=== PATIENT | male | born 1990 | race Caucasian/White ===

== ENCOUNTER 2016-12-24 18:04 | Observation (INO) | payer SELFPAY ==
--- NOTE | 2016-12-24 18:33 | DR.ABDMALE ---
HPI - Time seen Time seen: 18:33 - PCP Primary Care Physician: HAM - Complaint Chief Complaint Doctors Comments: Patient admits to stomach pain and diarrhea nausera for 3-4 days. He denies fever. Chief Complaint:: PT. C/O ABDOMINAL PAIN, NAUSEA, DIARRHEA, BELCHING. - Mode of arrival Mode of Arrival: Ambulatory - Timing Onset of Chief Complaint: 12/22/16 PMH - PMH Past Medical History: Yes Past Medical History: Hypertension Past Surgical History: Yes Surgical History: Other - Family History History of Family Medical Conditions: No - Social History Does patient currently use any type of tobacco product: No Have you used tobacco products in the last 12 months: No Type of Tobacco Use: None Does any household member use tobacco: No Alcohol Use: None Do you use any recreational Drugs:: No Lives With: Spouse Lives Where: Home - infectious screening In the last 2 months have you had wt loss of >10#?: NO Have you had fever, night sweats or hemotysis?: No Have you traveled outside the country in the last 6 months?: No Isolation: Standard ROS - Review of Systems Eyes: No Symptoms Reported ENTM: No Symptoms Reported Respiratoy: No Symptoms Reported Cardiovascular: No Symptoms Reported Gastrointestinal/Abdominal: Abdominal Pain, Diarrhea, Nausea Genitourinary: No Symptoms Reported Neurological: No Symptoms Reported Musculoskeletal: No Symptoms Reported Integumentary: No Symptoms Reported Hematologic/Lymphatic: No Symptoms Reported Endocrine: No Symptoms Reported Psychiatric: No Symptoms Reported All Other Systems: Reviewed and Negative PE - Vital Signs Vital Signs: Temp Pulse Pulse Resp BP BP Pulse Ox 12/24/16 20:56 98.9 F 91 H 16 139/91 98 12/24/16 18:05 98.4 F 130 H 18 156/101 97 - General Limitations: No Limitations General Appearance: Alert, In No Apparent Distress - Head Head Exam: Normal Inspection, Atraumatic - Eyes Eye exam: Normal Appearance, PERRL, EOMI - ENT ENT Exam: Normal Exam - Neck Neck Exam: Normal Inspection, Full ROM - Chest Chest Inspection: Normal Inspection - Respiratory Respiratory Exam: Normal Lung Sounds Bilat Respiratory Exam: Bilateral Clear to Auscultation - Cardiovascular Cardiovascular Exam: Regular Rate, Normal Rhythm - Abdominal Exam Abdominal Exam: Normal Inspection, Tenderness, Guarding Abdominal Tenderness: RUQ, LUQ, Suprapubic - Rectal Rectal Exam: Deferred - Back Back Exam: Normal Inspection - Extremeties Extremities Exam: Normal Inspection - Exam: Male: Deferred - Neurologic Neurological Exam: Alert, Oriented X3, CN II-XII Intact - Psychiatric Psychiatric Exam: Normal Affect, Normal Mood - Skin Skin Exam: Warm, Dry, Intact Course - Reevaluation 1st: Unchanged - Consultation Consultation Comments: Dr Ramesh called wanted patient to have CT abd/with contrast and admitted to obs. 1842 ROR - Labs Reviewed Result Diagrams: 12/24/16 18:50 12/24/16 18:50 Laboratory: 12/24/16 19:12 Stool - Final WBC 19.7 X10^3/uL (3.6-10.0) H 12/24/16 18:50 RBC 5.57 X10^6/uL (4.7-6.0) 12/24/16 18:50 Hgb 16.9 g/dL (13.5-18.0) 12/24/16 18:50 Hct 48.0 % (42.0-54.0) 12/24/16 18:50 MCV 86.1 fL (80.0-100.0) 12/24/16 18:50 MCH 30.3 pg (27.0-34.0) 12/24/16 18:50 MCHC 35.2 g/dL (33.0-35.0) H 12/24/16 18:50 RDW 13.3 % (11.6-16.5) 12/24/16 18:50 Plt Count 272 X10^3/uL (150.0-450.0) 12/24/16 18:50 MPV 9.8 fL (7.4-11.0) 12/24/16 18:50 Neut % 84.4 % (42.0-75.0) H 12/24/16 18:50 Lymph % 9.3 % (21.0-51.0) L 12/24/16 18:50 Jessamine % 5.8 % (0.0-13.0) 12/24/16 18:50 Eos % 0.4 % (0.9-2.9) L 12/24/16 18:50 Baso % 0.1 % (0.2-1.0) L 12/24/16 18:50 Neut # 16.6 x10^3/uL (2.2-4.8) H 12/24/16 18:50 Lymph # 1.8 X10^3/uL (1.3-2.9) 12/24/16 18:50 Jessamine # 1.1 x10^3/uL (0.3-0.8) H 12/24/16 18:50 Eos # 0.1 x10^3/uL (0.0-0.2) 12/24/16 18:50 Baso # 0.0 X10^3/uL (0.0-0.1) 12/24/16 18:50 Absolute Nucleated RBC 0.0 /100WBC 12/24/16 18:50 Sodium 140 mmol/L (136-145) 12/24/16 18:50 Corrected Sodium 140 mmol/L (136-145) 12/24/16 18:50 Potassium 4.1 mmol/L (3.5-5.1) 12/24/16 18:50 Chloride 104 mmol/L (98-107) 12/24/16 18:50 Carbon Dioxide 24.1 mmol/L (21-32) 12/24/16 18:50 BUN 11 mg/dL (7-18) 12/24/16 18:50 Creatinine 1.32 mg/dL (0.70-1.30) H 12/24/16 18:50 Est GFR (MDRD) Af Amer > 60 (>60) 12/24/16 18:50 Est GFR (MDRD) Non-Af > 60 (>60) 12/24/16 18:50 Glucose 111 mg/dL (65-99) H 12/24/16 18:50 Calcium 9.2 mg/dL (8.5-10.1) 12/24/16 18:50 Corrected Calcium TNP 12/24/16 18:50 Total Bilirubin 0.60 mg/dL (0.2-1.0) 12/24/16 18:50 AST 26 Units/L (15-37) 12/24/16 18:50 ALT 69 Units/L (12-78) 12/24/16 18:50 Alkaline Phosphatase 85 Units/L (46-116) 12/24/16 18:50 C-Reactive Protein 20.50 mg/L (0-3.0) H 12/24/16 18:50 Total Protein 8.0 g/dL (6.4-8.2) 12/24/16 18:50 Albumin 4.0 g/dL (3.4-5.0) 12/24/16 18:50 Globulin 4.0 g/dL (2.5-4.5) 12/24/16 18:50 Albumin/Globulin Ratio 1.0 Ratio (1.1-2.1) L 12/24/16 18:50 Amylase 47 Units/L (25-115) 12/24/16 18:50 Lipase 77 Units/L (73-393) 12/24/16 18:50 Stool Description 5 g liquid 12/24/16 19:12 Stool for White Cells No wbc's seen (None) 12/24/16 19:12 Cryptosporid parvum Ag Negative (NEGATIVE) 12/24/16 19:12 E. histolytica Antigen Negative (NEGATIVE) 12/24/16 19:12 Giardia lamblia Ag Negative (NEGATIVE) 12/24/16 19:12 H. pylori IgG Antibody Negative (NEGATIVE) 12/24/16 18:50 - Diagnosis Discharge Problem: Acute diarrhea Abdominal pain Qualifiers: Abdominal location: right lower quadrant Qualified Code(s): R10.31 - Right lower quadrant pain Gastritis Qualifiers: Gastritis type: unspecified gastritis Chronicity: acute Gastritis bleeding: without bleeding Qualified Code(s): K29.00 - Acute gastritis without bleeding - Discharge Plan Condition: Stable - Follow ups/Referrals Follow ups/Referrals: Michele Ramesh [Primary Care Provider] - 3 days - Instructions
[2016-12-24] MEDS ORDERED: NS 1000 ML 1,000 ML IV ONE (18:40)
[2016-12-24] MEDS ORDERED: NS 1000 ML 1,000 ML ONE (18:59)
[2016-12-24 19:14] LABS: BASOPHILS % (AUTO) 0.1 % (0.2-1.0); EOSINOPHILS # (AUTO) 0.1 x10^3/uL (0.0-0.2); EOSINOPHILS % (AUTO) 0.4 % (0.9-2.9); HEMOGLOBIN 16.9 g/dL (13.5-18.0); LYMPHOCYTES # (AUTO) 1.8 X10^3/uL (1.3-2.9); LYMPHOCYTES % (AUTO) 9.3 % (21.0-51.0); MEAN CORPUSCULAR HEMOGLOBIN 30.3 pg (27.0-34.0); MEAN CORPUSCULAR HGB CONC 35.2 g/dL (33.0-35.0); MEAN CORPUSCULAR VOLUME 86.1 fL (80.0-100.0); MEAN PLATELET VOLUME 9.8 fL (7.4-11.0); MONOCYTES # (AUTO) 1.1 x10^3/uL (0.3-0.8); MONOCYTES % (AUTO) 5.8 % (0.0-13.0); NEUTROPHILS # (AUTO) 16.6 x10^3/uL (2.2-4.8); NEUTROPHILS % (AUTO) 84.4 % (42.0-75.0); PLATELET COUNT 272 X10^3/uL (150.0-450.0); RED BLOOD COUNT 5.57 X10^6/uL (4.7-6.0); RED CELL DISTRIBUTION WIDTH 13.3 % (11.6-16.5); WHITE BLOOD COUNT 19.7 X10^3/uL (3.6-10.0)
[2016-12-24 19:16] LABS: ALANINE AMINOTRANSFERASE 69 Units/L (12-78); ALKALINE PHOSPHATASE 85 Units/L (46-116); AMYLASE 47 Units/L (25-115); ASPARTATE AMINO TRANSFERASE 26 Units/L (15-37); BLOOD UREA NITROGEN 11 mg/dL (7-18); CALCIUM 9.2 mg/dL (8.5-10.1); CARBON DIOXIDE 24.1 mmol/L (21-32); CHLORIDE 104 mmol/L (98-107); COR NA(FOR HYPERGLY) 140 mmol/L (136-145); CREATININE 1.32 mg/dL (0.70-1.30); GLUCOSE 111 mg/dL (65-99); LIPASE 77 Units/L (73-393); SODIUM 140 mmol/L (136-145); eGFR BLACK RACES > 60 (>60); eGFR NON BLACK RACES > 60 (>60)
[2016-12-24 20:40] LABS: CRYPTOSPORIDIUM PARVUM ANTIGEN NEGATIVE (NEGATIVE); GIARDIA LAMBLIA ANTIGEN NEGATIVE (NEGATIVE)
[2016-12-24] MEDS ORDERED: NS 100 ML IV 100 ML IV ONE (20:49)
--- NOTE | 2016-12-24 21:30 | CT ---
History: Diffuse abdominal pain. Exam: Post contrast CT examination of the abdomen \T\ pelvis. Technique: Multiple CT images of the abdomen and pelvis were obtained from the lung bases to the pub ic symphysis following the IV administration of radiopaque contrast. Findings: The lung bases are clear. The heart is normal in size without a pericardial effusion. The liver, gal lbladder, adrenal glands, and spleen are unremarkable on these post contrasted images. There is no p neumoperitoneum or hemoperitoneum seen. There is no bowel obstruction, large hernia defect, or acute mesenteric inflammatory change. There is no evidence for colitis, diverticulitis, or appendicitis. No loculated intraperitoneal fluid collection is seen. There is some enhancement of the small bowel, diffusely, which would imply a widespread, early, enteritis without evidence for high-grade bowel o bstruction or other acute abdominopelvic abnormalities. Examination of the kidneys demonstrates no obstructing renal stone. No other renal, bladder, or abdo minopelvic abnormalities are seen. No lytic bony lesions or acute fractures are seen. Impression: Imaging findings suggesting a widespread small bowel enteritis without evidence for high-grade bowel obstruction, free peritoneal air, or other acute abdominopelvic abnormalities. Reported By:
[2016-12-24] MEDS ORDERED: ZOFRAN INJ 4 MG VIAL IVP PRN (21:44)
[2016-12-24] MEDS: PROTONIX INJ 40 MG VIAL IVP SCH (22:25)
[2016-12-24] MEDS ORDERED: NS + KCL 20 MEQ/L 1,000 ML IV ONE (22:29)
[2016-12-24] MEDS: NS 1000 ML 1,000 ML with POTASSIUM CHLORIDE INJ 20 MEQ VIAL 20 MEQ IV SCH ×2 (22:31)
[2016-12-24] MEDS: MORPHINE SULFATE INJ 4 MG IVP PRN (23:52)
[2016-12-25] MEDS: MORPHINE SULFATE INJ 4 MG IVP PRN (04:00)
[2016-12-25 05:22] LABS: ALANINE AMINOTRANSFERASE 58 Units/L (12-78); ALBUMIN 3.6 g/dL (3.4-5.0); ALKALINE PHOSPHATASE 72 Units/L (46-116); ASPARTATE AMINO TRANSFERASE 18 Units/L (15-37); BLOOD UREA NITROGEN 10 mg/dL (7-18); CALCIUM 8.9 mg/dL (8.5-10.1); CHLORIDE 106 mmol/L (98-107); CREATININE 1.27 mg/dL (0.70-1.30); GLUCOSE 86 mg/dL (65-99); SODIUM 141 mmol/L (136-145); TOTAL PROTEIN 7.1 g/dL (6.4-8.2); eGFR BLACK RACES > 60 (>60); eGFR NON BLACK RACES > 60 (>60)
[2016-12-25] MEDS ORDERED: NS + KCL 20 MEQ/L 1,000 ML IV ONE (06:00)
[2016-12-25] MEDS: NS 1000 ML 1,000 ML with POTASSIUM CHLORIDE INJ 20 MEQ VIAL 20 MEQ IV SCH ×4 (06:06→14:43)
[2016-12-25 06:22] LABS: BASOPHILS % (AUTO) 0.2 % (0.2-1.0); EOSINOPHILS # (AUTO) 0.2 x10^3/uL (0.0-0.2); EOSINOPHILS % (AUTO) 1.8 % (0.9-2.9); HEMATOCRIT 42.9 % (42.0-54.0); HEMOGLOBIN 14.9 g/dL (13.5-18.0); LYMPHOCYTES # (AUTO) 2.7 X10^3/uL (1.3-2.9); LYMPHOCYTES % (AUTO) 29.5 % (21.0-51.0); MEAN CORPUSCULAR HEMOGLOBIN 29.9 pg (27.0-34.0); MEAN CORPUSCULAR HGB CONC 34.7 g/dL (33.0-35.0); MEAN PLATELET VOLUME 10.1 fL (7.4-11.0); MONOCYTES # (AUTO) 0.6 x10^3/uL (0.3-0.8); MONOCYTES % (AUTO) 6.3 % (0.0-13.0); NEUTROPHILS # (AUTO) 5.6 x10^3/uL (2.2-4.8); NEUTROPHILS % (AUTO) 62.2 % (42.0-75.0); PLATELET COUNT 220 X10^3/uL (150.0-450.0); RED BLOOD COUNT 4.98 X10^6/uL (4.7-6.0); RED CELL DISTRIBUTION WIDTH 13.1 % (11.6-16.5)
[2016-12-25] MEDS: SYNTHROID 75 mcg TAB PO SCH (07:47)
[2016-12-25] MEDS: PROTONIX INJ 40 MG VIAL IVP SCH (09:14)
[2016-12-25 10:28] VITALS: BMI 39.2
[2016-12-25] MEDS: BENTYL CAP 10 MG PO SCH ×4 (11:36→21:27)
[2016-12-25] MEDS: SOLU-Medrol 40 MG VIAL IVP SCH ×3 (11:36→21:27)
[2016-12-25] MEDS: CIPRO IV 400 MG PREMIX* 400 MG/200 ML IV.SOLN. IV SCH ×2 (11:37→21:28)
[2016-12-25] MEDS: FLAGYL IV PREMIX 500 MG BAG 500 MG/100 ML BAG IV SCH ×3 (12:51→21:28)
[2016-12-26] MEDS: NS 1000 ML 1,000 ML with POTASSIUM CHLORIDE INJ 20 MEQ VIAL 20 MEQ IV SCH ×6 (00:32→05:17)
[2016-12-26] MEDS: FLAGYL IV PREMIX 500 MG BAG 500 MG/100 ML BAG IV SCH ×2 (02:21→08:36)
[2016-12-26 04:59] LABS: ALANINE AMINOTRANSFERASE 66 Units/L (12-78); ALBUMIN 3.6 g/dL (3.4-5.0); ALKALINE PHOSPHATASE 76 Units/L (46-116); ASPARTATE AMINO TRANSFERASE 24 Units/L (15-37); BLOOD UREA NITROGEN 11 mg/dL (7-18); CALCIUM 9.1 mg/dL (8.5-10.1); CARBON DIOXIDE 23.6 mmol/L (21-32); CHLORIDE 106 mmol/L (98-107); COR NA(FOR HYPERGLY) 141 mmol/L (136-145); CREATININE 1.12 mg/dL (0.70-1.30); GLUCOSE 115 mg/dL (65-99); SODIUM 141 mmol/L (136-145); TOTAL PROTEIN 7.7 g/dL (6.4-8.2); eGFR BLACK RACES > 60 (>60); eGFR NON BLACK RACES > 60 (>60)
[2016-12-26] MEDS: MORPHINE SULFATE INJ 4 MG IVP PRN ×2 (05:12)
[2016-12-26 05:14] LABS: BASOPHILS % (AUTO) 0 % (0.2-1.0); EOSINOPHILS % (AUTO) 0.1 % (0.9-2.9); HEMATOCRIT 43.2 % (42.0-54.0); HEMOGLOBIN 15.4 g/dL (13.5-18.0); LYMPHOCYTES # (AUTO) 0.8 X10^3/uL (1.3-2.9); LYMPHOCYTES % (AUTO) 9.2 % (21.0-51.0); MEAN CORPUSCULAR HEMOGLOBIN 30.2 pg (27.0-34.0); MEAN CORPUSCULAR HGB CONC 35.5 g/dL (33.0-35.0); MONOCYTES # (AUTO) 0.1 x10^3/uL (0.3-0.8); MONOCYTES % (AUTO) 0.8 % (0.0-13.0); NEUTROPHILS # (AUTO) 7.8 x10^3/uL (2.2-4.8); NEUTROPHILS % (AUTO) 89.9 % (42.0-75.0); PLATELET COUNT 262 X10^3/uL (150.0-450.0); RED BLOOD COUNT 5.08 X10^6/uL (4.7-6.0); RED CELL DISTRIBUTION WIDTH 12.8 % (11.6-16.5); WHITE BLOOD COUNT 8.7 X10^3/uL (3.6-10.0)
[2016-12-26] MEDS: SOLU-Medrol 40 MG VIAL IVP SCH ×2 (05:14→13:17)
[2016-12-26 05:25] LABS: ERYTHROCYTE SEDIMENTATION RATE 11 MM/HOUR (0-15)
[2016-12-26] MEDS: SYNTHROID 75 mcg TAB PO SCH (06:11)
[2016-12-26] MEDS: BENTYL CAP 10 MG PO SCH ×2 (08:36→13:16)
[2016-12-26] MEDS: CIPRO IV 400 MG PREMIX* 400 MG/200 ML IV.SOLN. IV SCH (08:36)
[2016-12-26] MEDS ORDERED: PROTONIX INJ 40 MG VIAL IVP SCH (09:00)
[2016-12-26 12:47] VITALS: BP 137/76
[2016-12-26] MEDS ORDERED: NS + KCL 20 MEQ/L 1,000 ML IV SCH (14:00)
--- NOTE | 2016-12-26 15:11 | DR.H&P ---
H&P - History & Physical for Day of: H&P Date: 12/24/16 - Chief Complaint Chief Complaint: Abdominal Pain, Nausea, Vomiting, Diarrhea, Belching - Allergies Allergies/Adverse Reactions: Allergies Allergy/AdvReac Type Severity Reaction Status Date / Time Lactose Intolerance (GI) Allergy Verified 12/24/16 18:09 - History of Present Illness History of Present Illness: Patient presented to the emergency room with complaints of abdominal pain, nausea, vomiting and diarrhea as well as belching that has been going on for 3-[address] of the Abdomen and Pelvis was ordered whcih showed suggestive of wide spread small bowel enteritis without evidence of high grade bowel obstruction, free peritoneal air or other acute abdominopelvic findings. Admission labs were normal with the exception of Labs: WBC 19.7, MCHC 35.2, MCHC 35.2, Neut% 84.4, Lymph% 9.3, Eos% 0.4, Baso% 0.1, Neut# 16.6, Mclean# 1.1, BUN 1.32, Glucose 111, CRP 20.50, Albumin/Globulin 1.0. Stool negative for WBC, ova and parasite. Patient also negative for H-Pylori. Patient admitted for futher observation and treated with IV Fluids, Protonix IV and Zofran as needed - Past Medical History Past Medical History: Hypertension - Past Surgical History Surgical History: Abdominal Surgery - Social History Does patient currently use any type of tobacco product: No Have you used tobacco products in the last 12 months: No Type of Tobacco Use: Cigarettes Does any household member use tobacco: No Alcohol Use: None Drug Use: None - Medications Home Medications: Levothyroxine Sodium [SYNTHROID 75 mcg *] 1 tab PO DAILY 12/24/16 [History Confirmed 12/25/16] - Review of Systems Constitutional: No Symptoms Reported Eyes: No Symptoms Reported ENT: No Symptoms Reported Respiratory: No Symptoms Reported Cardiovascular: No Symptoms Reported Gastrointestinal: Nausea, Vomiting, Abdominal Pain, Diarrhea Genitourinary: No Symptoms Reported Musculoskeletal: No Symptoms Reported Skin: No Symptoms Reported Neurological: No Symptoms Reported - Physical Exam Vital Signs: Temperature 97.8 F Pulse Rate [Left Brachial] 92 Pulse Rate [Right] 79 Respiratory Rate 20 Blood Pressure [Left Arm] 137/76 O2 Sat by Pulse Oximetry 97 Oriented: Normal Eyes: Normal Ear: Normal Nose: Normal Throat: Normal Respiratory: Clear Throughout Cardiovascular: Normal : Normal Auscultation: Bowel Sounds: Increased Palpation: Normal Tenderness: Diffuse Skin: Normal Musculoskeletal: Normal Psychiatric: Normal Mood Description: Calm, Appropriate Affect: Normal Speech Pattern: Clear, Appropriate - Assessment/Plan (1) Regional enteritis of small bowel Qualifiers: Digestive disease complication type: D Status: Acute Plan: Patient admitted for futher observation and treated with IV Fluids, Protonix IV and Zofran as needed
--- NOTE | 2016-12-26 15:43 | PCM.PROG ---
Progress Note - Progress Note for Day of Date: 12/25/16 - Subjective Subjective: Patient admitted with abdominal pain, nausea, vomiting and diarrhea as well as belching that has been going on for 3-4 days. Patient admitted for small bowel enteritis and abdominal pain. Patient complains of abdominal pain. Patient has been NPO and is still having nausea and diarrhea. We are going to start patient on IV Antibiotics Cipro and Flagyl, as well as IV Solumedrol and Bentyl 20mg QID. We are going to continue to observe patient and repeat labs in the AM. Labs are within normal limits with the exception of Neut# 5.6 and Albumin/Globulin Ratio of 1.0 - Past Medical Family Social History Past Med/Fam/Surg Hx: No changes since H&P Allergies: Allergies Lactose Intolerance (GI) Allergy (Verified 12/24/16 18:09) - Review of Systems ROS: No change since H&P - Vital Signs and I&O's Vital Signs: Temperature 97.8 F Pulse Rate [Left Brachial] 92 Pulse Rate [Right] 79 Respiratory Rate 20 Blood Pressure [Left Arm] 137/76 O2 Sat by Pulse Oximetry 97 Intake and Output: Intake & Output 12/24/16 12/25/16 12/26/16 12/27/16 11:59 11:59 11:59 11:59 Intake Total 1470 4057 Balance 1470 4057 - Physical Exam Oriented: Normal Eyes: Normal Ear: Normal Nose: Normal Throat: Normal Cardiovascular: Normal : Normal Auscultation: Bowel Sounds: Increased Palpation: Normal Tenderness: Diffuse Skin: Normal Musculoskeletal: Normal Psychiatric: Normal Mood Description: Calm, Appropriate Affect: Normal Speech Pattern: Clear, Appropriate - Laboratory and Diagnostics Result Diagrams: 12/26/16 03:20 12/26/16 03:20 Labs: Laboratory WBC 8.7 X10^3/uL (3.6-10.0) 12/26/16 03:20 RBC 5.08 X10^6/uL (4.7-6.0) 12/26/16 03:20 Hgb 15.4 g/dL (13.5-18.0) 12/26/16 03:20 Hct 43.2 % (42.0-54.0) 12/26/16 03:20 MCV 85.0 fL (80.0-100.0) 12/26/16 03:20 MCH 30.2 pg (27.0-34.0) 12/26/16 03:20 MCHC 35.5 g/dL (33.0-35.0) H 12/26/16 03:20 RDW 12.8 % (11.6-16.5) 12/26/16 03:20 Plt Count 262 X10^3/uL (150.0-450.0) 12/26/16 03:20 MPV 10.0 fL (7.4-11.0) 12/26/16 03:20 Neut % 89.9 % (42.0-75.0) H 12/26/16 03:20 Lymph % 9.2 % (21.0-51.0) L 12/26/16 03:20 Granite % 0.8 % (0.0-13.0) 12/26/16 03:20 Eos % 0.1 % (0.9-2.9) L 12/26/16 03:20 Baso % 0 % (0.2-1.0) L 12/26/16 03:20 Neut # 7.8 x10^3/uL (2.2-4.8) H 12/26/16 03:20 Lymph # 0.8 X10^3/uL (1.3-2.9) L 12/26/16 03:20 [place]ite # 0.1 x10^3/uL (0.3-0.8) L 12/26/16 03:20 Eos # 0.0 x10^3/uL (0.0-0.2) 12/26/16 03:20 Baso # 0.0 X10^3/uL (0.0-0.1) 12/26/16 03:20 Absolute Nucleated RBC 0.1 /100WBC 12/26/16 03:20 ESR 11 MM/HOUR (0-15) 12/26/16 03:20 Sodium 141 mmol/L (136-145) 12/26/16 03:20 Corrected Sodium 141 mmol/L (136-145) 12/26/16 03:20 Potassium 4.2 mmol/L (3.5-5.1) 12/26/16 03:20 Chloride 106 mmol/L (98-107) 12/26/16 03:20 Carbon Dioxide 23.6 mmol/L (21-32) 12/26/16 03:20 BUN 11 mg/dL (7-18) 12/26/16 03:20 Creatinine 1.12 mg/dL (0.70-1.30) 12/26/16 03:20 Est GFR (MDRD) Af Amer > 60 (>60) 12/26/16 03:20 Est GFR (MDRD) Non-Af > 60 (>60) 12/26/16 03:20 Glucose 115 mg/dL (65-99) H 12/26/16 03:20 Calcium 9.1 mg/dL (8.5-10.1) 12/26/16 03:20 Corrected Calcium TNP 12/26/16 03:20 Total Bilirubin 0.50 mg/dL (0.2-1.0) 12/26/16 03:20 AST 24 Units/L (15-37) 12/26/16 03:20 ALT 66 Units/L (12-78) 12/26/16 03:20 Alkaline Phosphatase 76 Units/L (46-116) 12/26/16 03:20 C-Reactive Protein 30.40 mg/L (0-3.0) H 12/26/16 03:20 Total Protein 7.7 g/dL (6.4-8.2) 12/26/16 03:20 Albumin 3.6 g/dL (3.4-5.0) 12/26/16 03:20 Globulin 4.1 g/dL (2.5-4.5) 12/26/16 03:20 Albumin/Globulin Ratio 0.9 Ratio (1.1-2.1) L 12/26/16 03:20 Amylase 47 Units/L (25-115) 12/24/16 18:50 Lipase 77 Units/L (73-393) 12/24/16 18:50 Stool Description 5 g liquid 12/24/16 19:12 Stool for White Cells No wbc's seen (None) 12/24/16 19:12 Cryptosporid parvum Ag Negative (NEGATIVE) 12/24/16 19:12 E. histolytica Antigen Negative (NEGATIVE) 12/24/16 19:12 Giardia lamblia Ag Negative (NEGATIVE) 12/24/16 19:12 H. pylori IgG Antibody Negative (NEGATIVE) 12/24/16 18:50 - Plan (1) Regional enteritis of small bowel Status: Acute Qualifiers: Digestive disease complication type: D Plan: Patient admitted for futher observation and treated with IV Fluids, Protonix IV and Zofran as needed
--- NOTE | 2016-12-26 15:55 | DR.CARTERD ---
- Discharge Summary for: Discharge Summary for Date of:: 12/26/16 - Admission Date Date of Admission: 12/24/16 - Admission Diagnoses Admission Diagnosis: Small Bowel Enteritis - Discharge Date Discharge Date: 12/26/16 - Discharge Diagnoses Discharge Diagnosis: Small Bowel Enteritis - Hospital Course Hospital Course: Patient admitted with abdominal pain, nausea, vomiting and diarrhea as well as belching that has been going on for 3-4 days. Patient admitted for small bowel enteritis and abdominal pain Labs: MCHC 35.5, Neut% 89.9, Lymph% 9.2, Eos% 0.1, Baso% 0, Neut# 7.8, Lymph# 0.8, Nye# 0.1, Glucose 115, CRP 30.40, Albumin/ globulin 0.9. He recievced IV Fluids, Flagyl and Cipro IV, IV Solumedrol and Bentyl. Patient states that his pain is much better and would like to try to eat something this am. If Patient can tolerate his food this am we are going to let him go on home On Cipro and Flagyl oral as well as Zofran and Bentyl. Labs: Labs are within normal limits with the exception of MCHC 35.5, Neut% 89.9, Lymph% 9.2, Eos% 0.1, Baso% 0, Neut# 7.8, Lymph# 0.8, Nye# 0.1, Glucose 115, CRP 30.40, Albumin/globulin 0.9. - Discharge Medications Discharge Medications: Levothyroxine Sodium [SYNTHROID 75 mcg *] 1 tab PO DAILY 12/24/16 [History] Ciprofloxacin HCl [CIPRO 500 MG TAB *] 500 mg PO Q12H #14 tab 12/26/16 [Rx] Dicyclomine HCl [BENTYL CAP 10 MG *] 20 mg PO QID #120 cap 12/26/16 [Rx] Metronidazole [Flagyl Tab 500 mg] 500 mg PO DAILY #7 tab 12/26/16 [Rx] Ondansetron HCl [Zofran Tab 4 mg] 4 mg PO Q8H PRN #30 tab 12/26/16 [Rx] - Discharge Disposition Discharge Disposition: Home with follow up in 1 week
== END 2016-12-26 13:40 | disposition home or self-care (01) ==
LOC: ER 18:17 → MED/SURG 21:35
PROVIDERS: ADMIT Internal Medicine; ATTEND Internal Medicine
DX: A08.39 Other viral enteritis (principal); R10.84 Generalized abdominal pain; R19.7 Diarrhea, unspecified; I10 Essential (primary) hypertension; R10.31 Right lower quadrant pain; K29.00 Acute gastritis without bleeding; R11.2 Nausea with vomiting, unspecified; D72.828 Other elevated white blood cell count; R94.4 Abnormal results of kidney function studies; R79.82 Elevated C-reactive protein (CRP)
CPT/HCPCS: 36415; 74177; 80053; 82150; 83690; 85025; 85652; 86140; 86677; 87045; 87205; 87328; 87329; 87336; 87427; 87899; 94760; 96365; 99284; A4216; A4222; C9113; S0030; G0378; J0744; J2270; J2920; J3480